=== PATIENT | female | born 1935 | race Caucasian/White ===

== ENCOUNTER 2020-11-22 12:42 | Emergency (ER) | payer OTHER, MEDICARE ==
[2020-11-22] MEDS ORDERED: ACETAMINOPHEN 325 MG TABLET (FP) PO ONE (12:58)
[2020-11-22 13:01] VITALS: BP 191/100; PULSE 94; TEMP 98.2; BMI 17.2
[2020-11-22] MEDS ORDERED: ACETAMINOPHEN 325 MG TABLET (FP) ONE (13:02)
== END 2020-11-22 14:41 | disposition home or self-care (01) ==
LOC: FER 12:42
DX: S63.501A Unspecified sprain of right wrist, initial encounter (principal)
CPT/HCPCS: 70450-TC; 72125-TC; 73110-TC-RT-FY; 73130-TC-RT-FY; 99283-25

== ENCOUNTER 2022-01-02 16:19 | Emergency (ER) | payer OTHER, MEDICARE ==
[2022-01-02 16:41] VITALS: BP 191/98; PULSE 98; RESP 18; TEMP 98; BMI 17.2
[2022-01-02] MEDS ORDERED: METHOCARBAMOL 500 MG TABLET PO ONE (16:49)
[2022-01-02] MEDS ORDERED: METHOCARBAMOL 500 MG TABLET ONE (16:53)
== END 2022-01-02 17:28 | disposition home or self-care (01) ==
LOC: FER 16:19
DX: M54.50 Low back pain, unspecified (principal); I10 Essential (primary) hypertension
CPT/HCPCS: 93005; 99283-25

== ENCOUNTER 2023-11-14 16:39 | Emergency (ER) | payer OTHER, MEDICARE ==
[2023-11-14 16:54] VITALS: BP 152/85; PULSE 73; RESP 18; TEMP 97.8; BMI 19.1
[2023-11-14 17:33] LABS: HEMATOCRIT 40.2 % (32.4-45.2); HEMOGLOBIN 12.9 G/dL (10.7-15.3); MEAN CELL VOLUME 90.7 fl (80-96); MEAN PLT VOLUME 8.1 fl (7.5-11.1); PLATELET COUNT 240.3 10^3/uL (134-434); RBC 4.43 10^6/uL (3.60-5.2); RDW 15.2 % (11.6-15.6); WHITE BLOOD COUNT 6.9 10^3/uL (4.0-10.8)
[2023-11-14] MEDS: SODIUM CHLORIDE 0.9% 1000 ML INFUS.BAG IV ONE (17:35)
[2023-11-14] MEDS ORDERED: cefTRIAXone SODIUM 1 GM VIAL ONE (17:39)
[2023-11-14 17:45] LABS: PLATELET ESTIMATE ADEQUATE
[2023-11-14 17:49] LABS: INR 1.24 (0.83-1.09)
[2023-11-14 17:51] LABS: ACTIVATED PTT 37.4 SECONDS (25.2-36.5)
[2023-11-14 17:57] LABS: ALBUMIN 4.2 g/dl (3.4-5.0); BILIRUBIN,TOTAL 0.6 mg/dl (0.2-1); CALCIUM 9.9 mg/dl (8.5-10.1); CREATININE 1.3 mg/dl (0.6-1.3); POTASSIUM 4.6 mmol/L (3.5-5.1); TOT PROT 6.9 g/dl (6.4-8.2)
[2023-11-14] MEDS: CEFTRIAXONE 1 GM in DEXTROSE 5%-WATER - 100 ML IVPB ONE (18:06)
== END 2023-11-14 19:25 | disposition home or self-care (01) ==
LOC: FER 16:39 → SUPCPDRO 16:39 → FER 19:25
DX: N30.90 Cystitis, unspecified without hematuria (principal)
CPT/HCPCS: 36415; 74176-TC; 80053; 81003; 81015; 85027; 85610; 85730; 86850; 86900; 86901; 87086; 87186; 99284-25

== ENCOUNTER 2024-03-27 13:34 | Emergency (ER) | payer OTHER, MEDICARE ==
[2024-03-27 13:43] VITALS: BP 158/71; PULSE 84; RESP 16; TEMP 97.3; BMI 19.1
[2024-03-27 14:32] LABS: HEMATOCRIT 40.4 % (32.4-45.2); HEMOGLOBIN 13.1 G/dL (10.7-15.3); MCHC 32.4 g/dl (32.0-36.0); MEAN CELL VOLUME 92.5 fl (80-96); MEAN PLT VOLUME 8.6 fl (7.5-11.1); PLATELET COUNT 274.3 10^3/uL (134-434); RBC 4.37 10^6/uL (3.60-5.2); RDW 14.4 % (11.6-15.6); WHITE BLOOD COUNT 5.9 10^3/uL (4.0-10.8)
[2024-03-27 14:37] LABS: PLATELET ESTIMATE ADEQUATE
[2024-03-27 14:45] LABS: CALCIUM 10.2 mg/dl (8.5-10.1); CREATININE 1.4 mg/dl (0.6-1.3); POTASSIUM 4.4 mmol/L (3.5-5.1)
[2024-03-27 14:46] LABS: ALBUMIN 4.4 g/dl (3.4-5.0); BILIRUBIN,TOTAL 0.6 mg/dl (0.2-1); TOT PROT 6.9 g/dl (6.4-8.2)
== END 2024-03-27 15:07 | disposition home or self-care (01) ==
LOC: FER 13:34
DX: R19.7 Diarrhea, unspecified (principal)
CPT/HCPCS: 36415; 80053; 85027; 99283-25